=== PATIENT | female | born 1970 | race Caucasian/White ===

== ENCOUNTER 2017-11-26 13:15 | Emergency (ER) | payer MEDICAID, OTHER | END 2017-11-26 14:30 | disposition home or self-care (01) | LOC: FTE 13:15 | DX: R14.0 Abdominal distension (gaseous) (principal) | CPT/HCPCS: 99283; Z7502 ==

== ENCOUNTER 2018-08-08 13:23 | Emergency (ER) | payer OTHER, MEDICAID ==
[2018-08-08] MEDS: KETOROLAC 60 MG INJ IM (18:39)
[2018-08-08 19:10] LABS: ADD UMIC YES; UR ASCORBIC ACID NEGATIVE (NEGATIVE); UR BACTERIA FEW /HPF (NONE SEEN); UR BILIRUBIN (Dip) NEGATIVE (NEGATIVE); UR BLOOD (Dip) 2+ mg/dL (NEGATIVE); UR CLARITY SLIGHTLY CLOUDY (CLEAR); UR COLOR YELLOW (YELLOW); UR GLUCOSE (Dip) NEGATIVE (NEGATIVE); UR KETONES (Dip) NEGATIVE (NEGATIVE); UR LEUKOCYTE ESTERASE (Dip) NEGATIVE Leu/ul (NEGATIVE); UR MUCUS FEW /HPF (NONE SEEN); UR NITRITE (Dip) NEGATIVE (NEGATIVE); UR RBC 148 /HPF (0-5); UR SPECIFIC GRAVITY (Dip) 1.017 (1.003-1.030); UR SQUAMOUS EPITHELIAL CELL MODERATE /HPF (FEW); UR TOTAL PROTEIN (Dip) 1+ mg/dl (NEGATIVE); UR UROBILINOGEN (Dip) NEGATIVE (NEGATIVE); UR WBC 23 /HPF (0-5)
== END 2018-08-08 21:50 | disposition home or self-care (01) ==
LOC: FTE 13:23
DX: R31.29 Other microscopic hematuria (principal)
CPT/HCPCS: 74176; 81001; 81025; 96372; 99285-25